=== PATIENT | female | born 1975 | race Caucasian/White ===

== ENCOUNTER → 2020-08-09 | Outpatient (CLI) | payer BC ==
[2020-08-09 14:42] VITALS: BP 121/84; PULSE 78; RESP 18; TEMP 98.2
--- NOTE | 2020-08-09 15:08 | P.GSHP ---
History of Present Illness H&P Date: 08/09/20 Chief Complaint: mass right breast Lu is a 45 year old female seen in consultation for Juliet Syed who noted a lump in her right breast about one month ago. She than had bilateral mammogram on 07-17-20 followed by a right breast ultrasound. This revealed a 7 by 8 mm lesion at the site of the palpable change. It is in the inner mid breast. The lesion is slightly smaller and harder than when she first noted it. No history of trauma or infection in the breast. NO ohter masses in her breast. No masses in the past. caffeine: coffee and pop daily nicotine: none chocolate: occasionally Family History: maternal grandfather: stomach paternal 1/2 aunt: breast cancer 40's Hormonal History: menarche: 11 , breast fed: none, age at first : 25 periods regular: last period 3 weeks ago BCP: since 17 for endometriosis hormones: none Surgical History: 1. gallbladder 2. 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 Genitourinary: Reports hematuria, Denies dysuria - Menstruation Menstruation: Reports period normal - Musculoskeletal Musculoskeletal: Denies myalgias - Integumentary Integumentary: Denies pruritus, Denies rash - Neurological Neurological: Denies numbness, Denies weakness - Psychiatric Psychiatric: Reports anxiety, Reports depression - Endocrine Endocrine: Denies fatigue, Denies weight change - Hematologic/Lymphatic Comment: none - Allergic/Immunologic Allergic/Immunologic: Reports seasonal allergies Past Medical History Past Medical History: GERD/Reflux History of Any Multi-Drug Resistant Organisms: None Reported Past Surgical History: Section, Cholecystectomy Additional Past Surgical History / Comment(s): section x1 2004; choecystectomy 2002; Past Anesthesia/Blood Transfusion Reactions: No Reported Reaction Past Psychological History: Depression Smoking Status: Never smoker Past Alcohol Use History: Occasional Past Drug Use History: None Reported Medications and Allergies Home Medications Medication Instructions Recorded Confirmed Type ALPRAZolam [Xanax] 0.25 mg PO DAILY PRN 08/09/20 08/09/20 History Cetirizine HCl [Zyrtec] 10 mg PO QAM 08/09/20 08/09/20 History Fluticasone Nasal [place] [Flonase 1 spray EA NOSTRIL DAILY PRN 08/09/20 08/09/20 History Nasal [place]] Pantoprazole [Protonix] 0 mg PO QAM 08/09/20 08/09/20 History Allergies Allergy/AdvReac Type Severity Reaction Status Date / Time Sulfa (Sulfonamide Allergy Chest Pain Unverified 08/09/20 14:30 Antibiotics) Surgical - Exam Vital Signs Temp Pulse Resp BP 98.2 F 78 18 121/84 08/09/20 14:34 08/09/20 14:34 08/09/20 14:34 08/09/20 14:34 BMI 36.1 - General obese - Eyes PERRL - ENT no hearing loss, no congestion - Neck no masses, trachea midline - Respiratory normal respiratory effort, clear to auscultation - Cardiovascular Rhythm: regular Heart Sounds: normal: S1, S2 - Abdomen Abdomen: soft, non tender, no guarding, no rigid, no rebound - Integumentary normal turgor - Neurologic no disoriented, no combative - Musculoskeletal normal gait, normal posture - Psychiatric oriented to time, oriented to person, oriented to place, speech is normal, memory intact Breast Exam: Bra: 38C inspection: bilateral grade 3 ptosis Palpation: right breast multipositional exam fibrocystic changes, no dominate masses noted special attention tot hte palpable area right axilla: no adenopathy of concern left breast multipositional exam fibrocystic changes, no dominate masses noted special attention tot hte palpable area left axilla: no adenopathy of concern Results mammogram and ultrasound results reviewed Assessment and Plan Assessment: Impression: 1. Mass right breast as per patient 2. abnormal right breast mammogram Plan: 1. ultrasound guided biopsy of the right breast 2. results reviewed with Dr. Houser and felt if not benign specific the lesion needed to be removed risk and benefits discussed and patient wishes to proceed. CC: Juliet Syed encounter 30 minutes, > 50% of time in planning and counselling
== END | disposition home or self-care (01) ==
LOC: WWCWWP 14:04
PROVIDERS: ATTEND Surgery
DX: Z53.9 Procedure and treatment not carried out, unspecified reason (principal)

== ENCOUNTER → 2020-08-17 | Day surgery (SDC) | payer BC ==
[2020-08-17 09:42] VITALS: RESP 16; TEMP 98.3
[2020-08-17 09:50] VITALS: BP 136/88; PULSE 80
--- NOTE | 2020-08-17 11:13 | USB ---
EXAMINATION TYPE: US discontinued breast core RT DATE OF EXAM: 08/17/2020 CLINICAL HISTORY: R92.8 abn mamm. Abnormal ultrasound TECHNIQUE: Ultrasound guided core biopsy of right breast. COMPARISON: Outside right breast mammogram and ultrasound July 27, 2020. Outside bilateral breast mammogram July 14, 2020. FINDINGS: The procedure of ultrasound guided core biopsy was explained to the patient. Benefits, alt ernatives, and risks were discussed. An informed consent was then obtained. The patient was placed in supine positioning for imaging and for the procedure. Preprocedure ultraso und fails to show suspicious persistent 8 mm hypoechoic lesion 3:00 position zone BC in the right nehemiah ast. Patient states she had history of palpable near this level which has resolved. Lesion was near s kin surface on outside mammogram except true lateral view more medial in position. Realtime scanning failed to show suspicious persistent lesion. Because no distinct suspicious lesion could be identifie d, biopsy is canceled. Patient is agreeable to canceling biopsy and short-term interval follow-up. The patient tolerated the attempted procedure well without any immediate complication. IMPRESSION: Canceled ultrasound guided core biopsy. No suspicious area persisted. BI-RADS 3 probable benign findings. Recommendation: Precautionary diagnostic right breast mammogram and ultrasound follow-up in 6 months time. Patient is agreeable to above. Would consider repeat true lateral view and correlating with old outside mammograms to see if area of concern remains present as this is only suspicious area when I review mammograms without reports or older studies for comparisons.
== END ==
LOC: RADUSWWP 09:27
PROVIDERS: ATTEND Surgery
DX: R92.8 Other abnormal and inconclusive findings on diagnostic imaging of breast (principal); Z53.8 Procedure and treatment not carried out for other reasons